=== PATIENT | female | born 1990 | race American Indian/Alaskan Native ===

== ENCOUNTER 2017-03-29 14:38 | Emergency (ER) | payer MEDICAID, OTHER ==
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
[2017-03-29 15:22] VITALS: BP 108/55
[2017-03-29 15:57] LABS: CHLORIDE,CL 101 mmol/L (101-111); SODIUM,NA 137 mmol/L (135-145)
[2017-03-29 16:09] LABS: ACETAMINOPHEN < 10
[2017-03-29] MEDS ORDERED: Azithromycin 250 MG Tab PO ONE (16:57)
[2017-03-29] MEDS ORDERED: cefTRIAXone 250 MG, Lidocaine 1% 0.9 ML IM ONE ×2 (16:57)
== END 2017-03-29 17:59 ==
LOC: DL.ED 14:38
DX: F20.9 Schizophrenia, unspecified (principal); N39.0 Urinary tract infection, site not specified; F19.10 Other psychoactive substance abuse, uncomplicated; E05.90 Thyrotoxicosis, unspecified without thyrotoxic crisis or storm; F17.210 Nicotine dependence, cigarettes, uncomplicated; Z88.5 Allergy status to narcotic agent
CPT/HCPCS: 36415; 80053; 80305; 81001; 81025; 83735; 84443; 85025; 87086; 87491; 87591; 96372; 99285; A9270; G0480; J0696

== ENCOUNTER 2021-07-31 20:40 | Emergency (ER) | payer MEDICARE, OTHER ==
[2021-07-31] MEDS ORDERED: Sodium Chloride 0.9% 10 ML Syringe FLUSH PRN (20:42)
[2021-07-31] MEDS ORDERED: Ondansetron 4 MG/2 ML SDV IVPUSH ONE (20:55)
[2021-07-31] MEDS ORDERED: MVI, Adult with Vitamin K 10 ML, Folic Acid 1 MG, Thiamine 100 MG in Lactated Ringers 1... IV ONE ×4 (21:02)
[2021-07-31 21:07] LABS: ANION GAP 14.6 mEq/L (7-13); CHLORIDE,CL 103 mmol/L (98-107); SODIUM,NA 140 mmol/L (136-145)
[2021-07-31] MEDS ORDERED: Sodium Chloride 0.9% 1,000 ML IV ONE (22:05)
[2021-07-31 22:29] LABS: CORONAVIRUS COVID-19 NAA NEGATIVE (NEGATIVE)
[2021-07-31 22:50] LABS: AMPHETAMINES,URINE POSITIVE (NEGATIVE); BARBITURATES,URINE NEGATIVE (NEGATIVE); BENZODIAZEPINE,URINE NEGATIVE (NEGATIVE); MDMA (ECSTASY), URINE POSITIVE (NEGATIVE); METHADONE,URINE NEGATIVE (NEGATIVE); METHAMPHETAMINES,URINE POSITIVE (NEGATIVE); OPIATES,URINE NEGATIVE (NEGATIVE); OXYCODONE,URINE POSITIVE (NEGATIVE); PHENCYCLIDINE,URINE NEGATIVE (NEGATIVE); TCA,URINE NEGATIVE (NEGATIVE)
[2021-07-31 23:32] VITALS: BP 108/91; PULSE 72
== END 2021-07-31 23:48 | disposition home or self-care (01) ==
LOC: DL.ED 20:40
DX: F19.10 Other psychoactive substance abuse, uncomplicated (principal); F17.210 Nicotine dependence, cigarettes, uncomplicated; Z88.5 Allergy status to narcotic agent; Z20.822 Contact with and (suspected) exposure to COVID-19
CPT/HCPCS: 0240U; 36415; 71045; 80053; 80305; 80307; 81001; 81025; 85025; 96365; 96375; 99283; 99285; J2405; J3411; J3490; J7030; J7120

== ENCOUNTER 2024-04-23 12:32 | Inpatient (IN) | payer MEDICARE, OTHER ==
[2024-04-23] MEDS ORDERED: Sodium Chloride 0.9% 10 ML Syringe FLUSH PRN (12:50)
[2024-04-23 12:59] LABS: BASOPHILS PERCENT AUTO 0.2 % (0.0-1.0); EOSINOPHILS PERCENT AUTO 0.9 % (1.0-3.0); HEMATOCRIT 42.8 % (37.0-47.0); HEMOGLOBIN 14.2 g/dL (12.0-16.0); LYMPHOCYTES PERCENT AUTO 26.7 % (20.5-50.1); MEAN CORPUSCULAR HGB CONC 33.2 g/dL (33.0-35.0); MEAN CORPUSCULAR VOLUME 87.3 fL (80-100); MONOCYTES PERCENT AUTO 8.6 % (2-8); NEUTROPHILS PERCENT AUTO 63.6 % (42.2-75.2); PLATELET COUNT,PLT 329 10^3/uL (150-450); WHITE BLOOD CELL COUNT,WBC 12.7 10^3/uL (5.0-10.0)
[2024-04-23] MEDS: Sodium Chloride 0.9% 500 ML IV SCH (13:08)
[2024-04-23 13:15] LABS: INR 0.9 (0.9-1.2); PROTHROMBIN TIME 9.6 SEC (9.0-12.0)
[2024-04-23 13:24] LABS: LACTIC ACID 0.8 mmol/L (0.4-2.0)
[2024-04-23 13:31] LABS: ALANINE AMINOTRANSFERASE,ALT 26 U/L (14-59); ALKALINE PHOSPHATASE 141 U/L (46-116); ANION GAP 17.2 mEq/L (7-13); ASPARTATE AMNIOTRANSFERASE,AST 18 U/L (15-37); BILIRUBIN TOTAL 0.4 mg/dL (0.2-1.0); BLOOD UREA NITROGEN,BUN 14 mg/dL (7-18); BUN/CREATININE RATIO 14.4 (No establ ref range); C-REACTIVE PROTEIN 0.57 ng/dL (<=0.50); CALCIUM 9.2 mg/dL (8.5-10.1); CARBON DIOXIDE,CO2 26 mmol/L (21-32); CHLORIDE,CL 102 mmol/L (98-107); CREATININE 0.97 mg/dL (0.55-1.02); GLUCOSE RANDOM 91 mg/dL (70-99); LIPASE 35 U/L (16-77); MAGNESIUM 2.1 mg/dL (1.8-2.4); POTASSIUM,K 4.2 mmol/L (3.5-5.1); PROTEIN TOTAL,TP 7.9 g/dL (6.4-8.2); SODIUM,NA 141 mmol/L (136-145)
[2024-04-23 13:32] LABS: ESTIMATED GFR 78 mL/min (>=60)
[2024-04-23] MEDS: VANCOmycin 1.5 GM in Sodium Chloride 0.9% 250 ML IV ONE (14:21)
[2024-04-23 15:07] LABS: APPEARANCE,URINE CLEAR (CLEAR); BILIRUBIN,URINE NEGATIVE (NEGATIVE); COLOR,URINE DARK YELLOW (YELLOW); GLUCOSE,URINE NEGATIVE (NEGATIVE); KETONES,URINE TRACE (NEGATIVE); LEUKOCYTE ESTERASE,URINE NEGATIVE (NEGATIVE); NITRITE,URINE NEGATIVE (NEGATIVE); OCCULT BLOOD,URINE NEGATIVE (NEGATIVE); PH,URINE 6.5 (5.0-9.0); PROTEIN,URINE 30 (NEGATIVE); UROBILINOGEN,URINE 0.2 mg/dL (0.2-1.0)
[2024-04-23 15:10] LABS: MDMA (ECSTASY), URINE POSITIVE (NEGATIVE); METHADONE,URINE NEGATIVE (NEGATIVE); METHAMPHETAMINES,URINE POSITIVE (NEGATIVE)
[2024-04-23 15:11] LABS: AMPHETAMINES,URINE POSITIVE (NEGATIVE); BARBITURATES,URINE NEGATIVE (NEGATIVE); BENZODIAZEPINE,URINE NEGATIVE (NEGATIVE); OPIATES,URINE NEGATIVE (NEGATIVE); OXYCODONE,URINE NEGATIVE (NEGATIVE); PHENCYCLIDINE,URINE NEGATIVE (NEGATIVE); TCA,URINE NEGATIVE (NEGATIVE)
[2024-04-23 15:18] LABS: MUCUS,URINE MANY /LPF (NOT SEEN)
[2024-04-23 15:20] LABS: BACTERIA,URINE FEW /HPF (0-FEW/HPF); HYALINE CASTS,URINE RARE; RBC,URINE 0-5 /HPF (0-5)
[2024-04-23] MEDS: Meropenem 1 GM SDV IVPUSH ONE (15:20)
[2024-04-23 15:21] LABS: EPITHELIAL CELLS,URINE MODERATE /HPF (NOT SEEN)
[2024-04-23] MEDS: Iopamidol 612 MG/ML 100 ML Bottle IVPUSH ONE (15:46)
[2024-04-23] MEDS ORDERED: Ibuprofen 400 MG Tab PO PRN (16:57)
[2024-04-23] MEDS ORDERED: Bisacodyl 5 MG Tab PO PRN (16:57)
[2024-04-23] MEDS ORDERED: Melatonin 3 MG Tab PO PRN (16:57)
[2024-04-23] MEDS ORDERED: Acetaminophen 325 MG Tab PO PRN (16:57)
[2024-04-23] MEDS ORDERED: Docusate Sodium 100 MG Cap PO PRN (16:57)
[2024-04-23] MEDS ORDERED: Ondansetron 4 MG/2 ML SDV IVPUSH PRN (16:57)
[2024-04-23] MEDS: Lactated Ringers 1,000 ML IV ONE (17:14)
[2024-04-23] MEDS: Ketorolac 30 MG/ML SDV IVPUSH PRN (17:22)
[2024-04-23] MEDS: Piperacillin/Tazobactam 4.5 GM in Sodium Chloride 0.9% 100 ML IV ONE (17:23)
[2024-04-23] MEDS: Piperacillin/Tazobactam 4.5 GM in Sodium Chloride 0.9% 100 ML IV SCH (21:12)
[2024-04-23] MEDS: Bacitracin/Neomycin/Polymyxin B Oint 28.4 GM Tube TOP SCH (21:15)
[2024-04-24] MEDS: VANCOmycin 1 GM in Sodium Chloride 0.9% 250 ML IV SCH (01:58)
[2024-04-24 06:34] LABS: HEMATOCRIT 35.8 % (37.0-47.0); HEMOGLOBIN 11.3 g/dL (12.0-16.0); MEAN CORPUSCULAR HEMOGLOBIN 28.6 pg (27.0-34.0); MEAN CORPUSCULAR HGB CONC 31.6 g/dL (33.0-35.0); MEAN CORPUSCULAR VOLUME 90.6 fL (80-100); RED BLOOD CELL COUNT 3.95 10^6/uL (4.2-5.4); WHITE BLOOD CELL COUNT,WBC 7.1 10^3/uL (5.0-10.0)
[2024-04-24 06:50] LABS: CALCIUM 7.9 mg/dL (8.5-10.1); CREATININE 0.79 mg/dL (0.55-1.02); EST CRCL DRUG DOSING (CG) 89.44 mL/min
[2024-04-24] MEDS: Enoxaparin 40 MG/0.4 ML Syringe SUBCUT SCH (10:20)
[2024-04-25 06:48] LABS: HEMATOCRIT 36.6 % (37.0-47.0); HEMOGLOBIN 11.8 g/dL (12.0-16.0); MEAN CORPUSCULAR HEMOGLOBIN 29.4 pg (27.0-34.0); MEAN CORPUSCULAR HGB CONC 32.2 g/dL (33.0-35.0); MEAN CORPUSCULAR VOLUME 91.3 fL (80-100); RED BLOOD CELL COUNT 4.01 10^6/uL (4.2-5.4); WHITE BLOOD CELL COUNT,WBC 6.5 10^3/uL (5.0-10.0)
[2024-04-25 07:09] LABS: ANION GAP 13.2 mEq/L (7-13); CALCIUM 8.2 mg/dL (8.5-10.1); CREATININE 0.79 mg/dL (0.55-1.02); EST CRCL DRUG DOSING (CG) 89.44 mL/min; POTASSIUM,K 4.2 mmol/L (3.5-5.1)
[2024-04-25 11:41] VITALS: BP 103/55; PULSE 61
[2024-04-25] MEDS: cefTRIAXone 2 GM Vial IVPUSH SCH (12:48)
== END 2024-04-25 14:15 | DRG 593 ==
LOC: DL.ED 12:32 → DL.MS 16:16
PROVIDERS: ADMIT Internal Medicine; ATTEND Internal Medicine
DX: L97.219 Non-pressure chronic ulcer of right calf with unspecified severity (principal); L03.115 Cellulitis of right lower limb; Z59.00 Homelessness unspecified; F17.210 Nicotine dependence, cigarettes, uncomplicated; F15.90 Other stimulant use, unspecified, uncomplicated; F12.90 Cannabis use, unspecified, uncomplicated; B95.5 Unspecified streptococcus as the cause of diseases classified elsewhere; Z79.1 Long term (current) use of non-steroidal anti-inflammatories (NSAID); Z91.199 Patient's noncompliance with other medical treatment and regimen due to unspecified reason; Z88.5 Allergy status to narcotic agent; Z98.890 Other specified postprocedural states; Z79.899 Other long term (current) drug therapy
CPT/HCPCS: 36415; 73701-RT; 80048; 80053; 80202; 80305-QW; 80307; 81001; 83605; 83690; 83735; 84145; 84703; 85025; 85027; 85610; 86140; 87040; 87070; 87077; 97140-GO; 97165-GO; 99222; 99232; 99239; A9270-GY; J0696; J1650; J1885; J2185; J2543; J3490; J7040; J7050; J7120; Q9967

== ENCOUNTER 2024-07-16 16:04 | Emergency (ER) | payer MEDICARE, OTHER ==
[2024-07-16 16:20] VITALS: BP 116/64; PULSE 89
[2024-07-16 16:37] LABS: BASOPHILS PERCENT AUTO 0.3 % (0.0-1.0); EOSINOPHILS PERCENT AUTO 2.8 % (1.0-3.0); HEMATOCRIT 40.9 % (37.0-47.0); HEMOGLOBIN 13.6 g/dL (12.0-16.0); LYMPHOCYTES PERCENT AUTO 28.1 % (20.5-50.1); MEAN CORPUSCULAR HEMOGLOBIN 28.6 pg (27.0-34.0); MEAN CORPUSCULAR HGB CONC 33.3 g/dL (33.0-35.0); MEAN CORPUSCULAR VOLUME 86.1 fL (80-100); MONOCYTES PERCENT AUTO 6.2 % (2-8); NEUTROPHILS PERCENT AUTO 62.6 % (42.2-75.2); PLATELET COUNT,PLT 238 10^3/uL (150-450); RED BLOOD CELL COUNT 4.75 10^6/uL (4.2-5.4); WHITE BLOOD CELL COUNT,WBC 9.6 10^3/uL (5.0-10.0)
[2024-07-16] MEDS: Acetaminophen 500 MG Tab PO ONE (16:42)
[2024-07-16] MEDS: Ibuprofen 400 MG Tab PO ONE (16:42)
[2024-07-16 16:54] LABS: ANION GAP 14.3 mEq/L (7-13); BLOOD UREA NITROGEN,BUN 10 mg/dL (7-18); CALCIUM 9.1 mg/dL (8.5-10.1); CARBON DIOXIDE,CO2 26 mmol/L (21-32); CHLORIDE,CL 105 mmol/L (98-107); EST CRCL DRUG DOSING (CG) 84.76 mL/min; GLUCOSE RANDOM 88 mg/dL (70-99); POTASSIUM,K 3.3 mmol/L (3.5-5.1); SODIUM,NA 142 mmol/L (136-145)
[2024-07-16 16:55] LABS: C-REACTIVE PROTEIN < 0.50 ng/dL (<=0.50); ESTIMATED GFR 98 mL/min (>=60)
[2024-07-16] MEDS: Lidocaine 1% 30 ML SDV INJECT ONE (17:17)
== END 2024-07-16 18:31 | disposition home or self-care (01) ==
LOC: DL.ED 16:04
DX: Z48.00 Encounter for change or removal of nonsurgical wound dressing (principal); Z88.5 Allergy status to narcotic agent
CPT/HCPCS: 36415; 80048; 85025; 86140; 87040; 99283; A9270-GY; J2003

== ENCOUNTER 2025-01-14 12:53 | Emergency (ER) | payer MEDICARE, OTHER ==
[2025-01-14 13:05] VITALS: BP 154/95; PULSE 105
== END 2025-01-14 13:16 | disposition home or self-care (01) ==
LOC: DL.ED 12:53
DX: S80.811A Abrasion, right lower leg, initial encounter (principal); Z88.5 Allergy status to narcotic agent; X58.XXXA Exposure to other specified factors, initial encounter; Z79.899 Other long term (current) drug therapy
CPT/HCPCS: 99284; A9270